=== PATIENT | female | born 1990 | race Caucasian/White ===

== ENCOUNTER 2016-12-14 16:58 | Emergency (ER) | payer MEDICAID, OTHER ==
[2016-12-14 17:59] VITALS: BP 118/79
--- NOTE | 2016-12-17 09:57 | ER ---
DATE SEEN: 12/14/2016 TIME SEEN: The patient was seen at 1721 hours. CHIEF COMPLAINT: Laceration, left lateral lower foot, lateral surface. HISTORY OF PRESENT ILLNESS: The patient was painting a picture frame and the glass fell out and cut her left lower foot. No hypoesthesia. No difficulty walking. No difficulty using her toes. Sensation is intact. ALLERGIES: None. MEDICATIONS: None. Serious health problems, negative. 2, para 2, woman, no acute distress. REVIEW OF SYSTEMS: Negative. PHYSICAL EXAMINATION: VITAL SIGNS: Blood pressure 110/72, heart rate 73 and regular, respirations 14, oxygen saturation 99% on room air, temperature is 36.6 degrees centigrade. GENERAL: Very pleasant woman, who has scattered amount of paint on her hands. Has a joyful countenance. HEENT: Negative. NECK: Negative. No thyromegaly. LUNGS: Clear. HEART: Without murmur. ABDOMEN: Soft. No megaly. EXTREMITIES: Left lower extremity, 3 cm laceration transects the dermis into the subcu. It does not involve tendons or muscle structures or fascia. Wound was cleansed, washed vigorously under the sink with running water and surgical scrub brush and then injected with lidocaine with epinephrine and closed with four stitches interrupted 3-0 Ethilon. The patient tolerated the procedure well. PLAN: The patient to have Keflex 500 mg one tab t.i.d. Use probiotics and followup with doctor as needed, otherwise sutures out in 2 weeks. 2, para 2-0-0-2, but otherwise, healthy. /[id number] RICCO/MODL
--- NOTE | 2016-12-19 09:47 | ER ---
DATE SEEN: 12/14/2016 ADDENDUM DIAGNOSIS: Left foot laceration, 3 cm. /[id number] RICCO/FIFI
== END 2016-12-14 17:55 | disposition home or self-care (01) ==
LOC: FB.ED 16:58
DX: S91.312A Laceration without foreign body, left foot, initial encounter (principal); W25.XXXA Contact with sharp glass, initial encounter; Y93.89 Activity, other specified
CPT/HCPCS: 12001; 12002; 99282